=== PATIENT | female | born 1965 | race Caucasian/White ===

== ENCOUNTER 2016-06-19 21:56 | Observation (INO) | payer OTHER ==
[~2016-06-19] VITALS: Ht 175.3 cm; Wt 101.9 kg
[~2016-06-19 21:56] MED LIST: CIPROFLOXACIN250 MG PO; METHADONE 22 MG/1 ML PO; ROXICODONE30 MG PO; ZANTAC150 MG PO
[2016-06-19 23:36] LABS: CHLORIDE 100 mEq/L (99-109); POTASSIUM 3.6 mEq/L (3.7-5.4); SODIUM 136 mEq/L (136-147)
[2016-06-19 23:38] LABS: GLUCOSE 101 mg/dL (70-99)
[2016-06-19 23:39] LABS: ANION GAP 7 MEQ/L (2-14)
[2016-06-19 23:40] LABS: TOTAL BILIRUBIN 0.2 mg/dL (0.0-1.0)
[2016-06-19 23:41] LABS: ALKALINE PHOSPHATASE 104 IU/L (3-129)
[2016-06-19 23:42] LABS: GFR ESTIMATE (CALCULATED) > 59 mL/min/
[2016-06-19 23:43] LABS: UREA NITROGEN (BUN) 7 mg/dL (9-23)
[2016-06-20] MEDS ORDERED: LASIX20 MG PO (00:36)
[2016-06-20 01:20] LABS: EOSINOPHIL (%) 3.4 % (0-5); EOSINOPHIL COUNT 0.2 K/uL (0-0.3); HEMATOCRIT 34.8 % (36.0-46.0); IMMATURE GRANULOCYTE (%) 0.3 % (0.0-0.7); IMMATURE GRANULOCYTE COUNT 0.2 K/uL; LYMPHOCYTE COUNT 2.2 K/uL (1.0-2.8); MCH 26.2 PG (29.0-34.0); MCHC 32.5 G/DL (30.0-36.0); MCV 80.7 FL (83-99); MEAN PLAT.VOLUME 9.9 uM^3 (9.5-12.4); MONOCYTE COUNT 0.8 K/uL (0-0.8); NEUTROPHIL (%) 52.7 % (45-76); NEUTROPHIL COUNT 3.6 K/uL (1.8-6.4); PLATELET COUNT 284 K/uL (156-360); RBC DIS.WIDTH-CV 14.7 % (11.8-14.6); RBC DIS.WIDTH-SD 42.5 % (39-53); RED BLOOD COUNT 4.31 M/uL (3.80-5.20); WHITE BLOOD COUNT 6.8 K/uL (4.1-10.2)
[2016-06-20] MEDS ORDERED: LASIX40 MG PO (09:44)
[2016-06-20 14:56] VITALS: BP 135/92
[2016-06-20 19:54] VITALS: BP 119/73
[2016-06-21 00:02] VITALS: BP 125/60
[2016-06-21 04:40] VITALS: BP 119/56
[2016-06-21 08:12] VITALS: BP 130/67
[2016-06-21 12:04] VITALS: BP 125/59
[2016-06-21] MEDS ORDERED: LASIX40 MG PO (14:44)
[2016-06-21] MEDS ORDERED: PREDNISONE10 MG PO (14:44)
[2016-06-21] MEDS ORDERED: METHADONE1 MG/1 ML PO (14:44)
[2016-06-21] MEDS ORDERED: ENDOCET 5-3251 EACH PO (14:44)
[2016-06-21 16:21] VITALS: BP 118/70
== END 2016-06-21 18:16 | disposition home or self-care (01) ==
LOC: EME 21:56 → 3EAST 06-20 02:21 → EDOF 06-20 02:21 → 3EAST 06-20 13:55
PROVIDERS: Emergency Medicine; Internal Medicine
DX: S82.492A Other fracture of shaft of left fibula, initial encounter for closed fracture (principal); M79.604 Pain in right leg; M79.605 Pain in left leg; R60.0 Localized edema; E66.9 Obesity, unspecified; D64.9 Anemia, unspecified; K21.9 Gastro-esophageal reflux disease without esophagitis; F17.200 Nicotine dependence, unspecified, uncomplicated; G89.29 Other chronic pain; F11.20 Opioid dependence, uncomplicated; M16.12 Unilateral primary osteoarthritis, left hip; Z88.0 Allergy status to penicillin; Z88.8 Allergy status to other drugs, medicaments and biological substances; Z83.3 Family history of diabetes mellitus; Z80.0 Family history of malignant neoplasm of digestive organs; W01.0XXA Fall on same level from slipping, tripping and stumbling without subsequent striking against object, initial encounter; Y93.01 Activity, walking, marching and hiking; Y92.009 Unspecified place in unspecified non-institutional (private) residence as the place of occurrence of the external cause
CPT/HCPCS: 73564; 73590; 73610; 74177; 80053; 82306; 82948; 83605; 83880; 85025; 86038; 86140; 86430; 86812 90; 87040; 93970; 99281; 99285; G0378; J1170; J1644; J2270; J3370; J7512

== ENCOUNTER 2016-09-15 00:57 | Emergency (ER) | payer OTHER ==
[~2016-09-15] VITALS: Ht 175.3 cm; Wt 103.9 kg
[~2016-09-15 00:57] MED LIST changes: +ENDOCET 5-3251 EACH PO; +LASIX20 MG PO; +LASIX40 MG PO; +METHADONE1 MG/1 ML PO; +PREDNISONE10 MG PO
[2016-09-15 04:21] VITALS: BP 109/63
[2016-09-15] MEDS ORDERED: ERGOCALCIF50000 UNIT PO ×2 (04:23→04:24)
== END 2016-09-15 04:25 | disposition home or self-care (01) ==
LOC: EME 00:57
DX: S70.02XA Contusion of left hip, initial encounter (principal); S80.02XA Contusion of left knee, initial encounter; W19.XXXA Unspecified fall, initial encounter; S82.402D Unspecified fracture of shaft of left fibula, subsequent encounter for closed fracture with routine healing; F17.200 Nicotine dependence, unspecified, uncomplicated; F32.9 Major depressive disorder, single episode, unspecified; K21.9 Gastro-esophageal reflux disease without esophagitis
CPT/HCPCS: 72170; 73564; 99281; 99284

== ENCOUNTER 2017-12-09 17:24 | Emergency (ER) | payer OTHER ==
[~2017-12-09] VITALS: Ht 175.3 cm; Wt 85.7 kg
[~2017-12-09 17:24] MED LIST changes: +ERGOCALCIF50000 UNIT PO
[2017-12-09 18:40] LABS: HEMATOCRIT 34.7 % (36.0-46.0); HEMOGLOBIN 11.5 G/DL (11.9-15.5); MCH 26.5 PG (29.0-34.0); MCHC 33.1 G/DL (30.0-36.0); PLATELET COUNT 228 K/uL (156-360); RBC DIS.WIDTH-CV 16.6 % (11.8-14.6); RBC DIS.WIDTH-SD 48.7 % (39-53); RED BLOOD COUNT 4.34 M/uL (3.80-5.20); WHITE BLOOD COUNT 6.1 K/uL (4.1-10.2)
[2017-12-09 19:00] LABS: CHLORIDE 102 mEq/L (99-109); POTASSIUM 3.7 mEq/L (3.7-5.4); SODIUM 137 mEq/L (136-147)
[2017-12-09 19:02] LABS: GLUCOSE 109 mg/dL (70-99)
[2017-12-09 19:05] LABS: CREATININE 0.9 mg/dL (0.6-1.3); GFR ESTIMATE (CALCULATED) > 59 mL/min/; SERUM ETHYL ALCOHOL < 10 mg/dL
[2017-12-09 19:06] LABS: TROP-I INTERPRETATION NEGATIVE; TROPONIN-I < 0.01 ng/mL (0.0-0.30); UREA NITROGEN (BUN) 7 mg/dL (9-23)
[2017-12-09 19:28] LABS: AMPHETAMINE NEGATIVE (500 ng/mL); BARBITURATES NEGATIVE (200 ng/mL); BENZODIAZEPINES PRESUMPTIVE POSITIVE (150 ng/mL); BUPRENORPHINE NEGATIVE (10 ng/mL); COCAINE NEGATIVE (150 ng/mL); METHADONE PRESUMPTIVE POSITIVE (200 ng/mL); METHAMPHETAMINE NEGATIVE (500 ng/mL); OPIATES (MORPHINE) PRESUMPTIVE POSITIVE (100 ng/mL); OXYCODONE NEGATIVE (100 ng/mL); PHENCYCLIDINE NEGATIVE (25 ng/mL); PROPOXYPHENE NEGATIVE (300 ng/mL); THC CANNABINOIDS NEGATIVE (50 ng/mL); TRICYCLIC ANTIDEPRESSANTS NEGATIVE (300 ng/mL)
[2017-12-09] MEDS ORDERED: KEFLEX500 MG PO (19:56)
[2017-12-09 19:59] LABS: BENZODIAZEPINES, URINE SCREEN POSITIVE (200 ng/mL)
[2017-12-09 20:14] LABS: APPEARANCE CLEAR ((CLEAR)); BILIRUBIN NEGATIVE; BLOOD NEGATIVE; COLOR STRAW ((YELLOW)); GLUCOSE (STRIP) NEGATIVE; KETONES NEGATIVE; LEUKOCYTES TRACE; NITRITE NEGATIVE; PROTEIN (STRIP) NEGATIVE; SPECIFIC GRAVITY 1.005 (1.000-1.030); UROBILINOGEN 0.2 MG/DL (0.2-1.0)
[2017-12-09 20:34] LABS: BACTERIA RARE /HPF; EPITHELIAL CELLS RARE /HPF; MUCUS NONE SEEN /LPF; RED BLOOD CELLS 0-5 /HPF (0-5); UCUL ADDED? NO; WHITE BLOOD CELLS NONE SEEN /HPF (0-5)
[2017-12-10 00:32] VITALS: BP 110/65
== END 2017-12-10 00:32 | disposition home or self-care (01) ==
LOC: EME 17:24
PROVIDERS: Emergency Medicine
PROC: 0HQEXZZ Repair Left Lower Arm Skin, External Approach (ICD-10-PCS; principal; 2017-12-09)
DX: S06.0X1A Concussion with loss of consciousness of 30 minutes or less, initial encounter (principal); S61.512A Laceration without foreign body of left wrist, initial encounter; T40.3X5A Adverse effect of methadone, initial encounter; W19.XXXA Unspecified fall, initial encounter; W26.9XXA Contact with unspecified sharp object(s), initial encounter; Y92.512 Supermarket, store or market as the place of occurrence of the external cause; K21.9 Gastro-esophageal reflux disease without esophagitis; F41.9 Anxiety disorder, unspecified; F32.9 Major depressive disorder, single episode, unspecified; B19.10 Unspecified viral hepatitis B without hepatic coma; F17.200 Nicotine dependence, unspecified, uncomplicated; Z79.891 Long term (current) use of opiate analgesic; Z87.442 Personal history of urinary calculi; Z87.440 Personal history of urinary (tract) infections; Z90.49 Acquired absence of other specified parts of digestive tract; Z88.0 Allergy status to penicillin; Z88.5 Allergy status to narcotic agent; Z88.8 Allergy status to other drugs, medicaments and biological substances
CPT/HCPCS: 70450; 80048; 81003; 84484; 84999; 85027; 99281; 99285; G0480; J7030